=== PATIENT | male | born 1990 | race Two or more races ===

== ENCOUNTER 2022-01-27 18:50 | Emergency (ER) | payer OTHER ==
[~2022-01-27] VITALS: Ht 182.9 cm; Wt 69.0 kg
[2022-01-27] MEDS ORDERED: IBUP800T27 PO (23:40)
[2022-01-27] MEDS ORDERED: AMOX-277 PO (23:40)
[2022-01-27] MEDS ORDERED: KETOROLAC TROMETH 60MG/2ML VIAL IM ONE (23:45)
[2022-01-27] MEDS ORDERED: TETANUS-DIPTH-ACEL PERTUSSIS 0.5ML SYR Tdap IM ONE (23:45)
[2022-01-27] MEDS ORDERED: ONDANSETRON ODT 4 MG TAB PO ONE (23:45)
[2022-01-28 01:15] VITALS: BP 104/67
== END 2022-01-28 02:14 | disposition home or self-care (01) ==
LOC: ER 18:53
DX: S61.511A Laceration without foreign body of right wrist, initial encounter (principal); S61.411A Laceration without foreign body of right hand, initial encounter; W54.0XXA Bitten by dog, initial encounter; Y93.89 Activity, other specified; Y92.89 Other specified places as the place of occurrence of the external cause; Y99.8 Other external cause status
CPT/HCPCS: 12002; 73110; 73130; 73200; 90471; 90715; 96372; 99284; J1885; Q0162

== ENCOUNTER 2022-01-31 15:12 | Emergency (ER) | payer OTHER ==
[~2022-01-31] VITALS: Ht 182.9 cm; Wt 61.8 kg
[~2022-01-31 15:12] MED LIST: AMOX-277 PO; IBUP800T27 PO
[2022-01-31 16:19] VITALS: BP 114/87
== END 2022-01-31 16:23 | disposition left against medical advice (07) ==
LOC: ER 15:12
DX: S61.511D Laceration without foreign body of right wrist, subsequent encounter (principal); Z79.1 Long term (current) use of non-steroidal anti-inflammatories (NSAID); Z79.2 Long term (current) use of antibiotics; X58.XXXD Exposure to other specified factors, subsequent encounter